=== PATIENT | female | born 1940 | race Caucasian/White ===

== ENCOUNTER → 2018-09-08 | Outpatient (CLI) | payer OTHER ==
[~2018-09-08] MED LIST: ALPR1TAB2 PO; CAR3125T PO; CYANOCOBALAMIN (B-12) 1000 MCG/1 ML VIAL IM ONE; CYANOCOBALAMIN (B-12) 1000 MCG/1 ML VIAL ONE; DIGO0.1262 PO; DOCU100T15 PO; ESOM20CA PO; EZET10TA38 PO; FERR324T17 PO; FLUT250M2 INH; FURO20TA PO; LEVO88TA36 PO; MAGN400T5 PO; MULT-195 OR; NITR0.4S29 SL; OMEG100078 PO; POTA10TA51 PO; RIVA20TA PO; SPIR25TA8 PO; TIOTCAP IN
[2018-09-08 10:53] VITALS: BP 126/45
[2018-09-08 13:05] VITALS: BP 126/45
[2018-09-08 16:06] LABS: Albumin 2.7 g/dL (3.4-5.0); Calcium 9.7 mg/dL (8.5-10.1); Magnesium 2.3 mg/dL (1.6-2.6); Potassium 3.4 mmol/L (3.5-5.1)
[2018-09-08 16:10] LABS: BUN/Creatinine Ratio 20.3; Basophils # (auto) 0.1 uL; Basophils % (auto) 0.6 % (0.0-2.0); Bilirubin, Total 0.3 mg/dL (0.2-1.0); Eosinophils # (auto) 0.1 uL; Eosinophils % (auto) 1.1 % (0.0-7.0); Hematocrit 37.3 % (36.0-46.0); Hemoglobin 12.1 g/dL (12.2-16.2); Lymphocytes # (auto) 1.1 uL; Lymphocytes % (auto) 12.7 % (10.0-50.0); Mean Corpuscular Hemoglobin 29.4 pg (28.0-32.0); Mean Corpuscular Hgb Conc. 32.3 g/dL (32.0-36.0); Mean Corpuscular Volume 91.1 fL (80.0-100.0); Monocytes % (auto) 11.8 % (0.0-12.0); Neutrophils # (auto) 6.5 uL; Neutrophils % (auto) 73.8 % (37.0-80.0); Nucleated Red Blood Cells % 0.1 %; Platelet Count (auto) 370 10^3/uL (140-450); Red Cell Distribution Width 15.1 % (11.8-14.3); Total Protein 6.4 g/dL (6.4-8.2); White Blood Cell 8.8 10^3/uL (4.4-10.8)
== END | disposition home or self-care (01) ==
LOC: CHF HDHVI 10:46
PROVIDERS: ATTEND Internal Medicine Cardiovascular Disease
DX: I11.0 Hypertensive heart disease with heart failure (principal); I50.23 Acute on chronic systolic (congestive) heart failure; D64.9 Anemia, unspecified; D51.9 Vitamin B12 deficiency anemia, unspecified; E55.9 Vitamin D deficiency, unspecified
CPT/HCPCS: 36415; 80053; 82306; 82607; 83735; 83880; 85025; 93701; G0463; J3420

== ENCOUNTER → 2018-09-10 | Outpatient (CLI) | payer OTHER ==
[~2018-09-10] MED LIST changes: -CYANOCOBALAMIN (B-12) 1000 MCG/1 ML VIAL IM ONE; -CYANOCOBALAMIN (B-12) 1000 MCG/1 ML VIAL ONE
== END | disposition home or self-care (01) ==
LOC: Rad HDHVI 13:40
PROVIDERS: ATTEND Internal Medicine Cardiovascular Disease
DX: I08.1 Rheumatic disorders of both mitral and tricuspid valves (principal); Z95.0 Presence of cardiac pacemaker
CPT/HCPCS: 93306

== ENCOUNTER → 2018-09-15 | Outpatient (CLI) | payer OTHER ==
[~2018-09-15] MED LIST changes: +CYANOCOBALAMIN (B-12) 1000 MCG/1 ML VIAL IM ONE; +CYANOCOBALAMIN (B-12) 1000 MCG/1 ML VIAL ONE
[2018-09-15 09:30] VITALS: BP 141/56
[2018-09-15 15:17] VITALS: BP 129/52
[2018-09-15 16:12] LABS: Potassium 3.7 mmol/L (3.5-5.1)
== END | disposition home or self-care (01) ==
LOC: CHF HDHVI 09:34
PROVIDERS: ATTEND Internal Medicine Cardiovascular Disease
DX: D51.9 Vitamin B12 deficiency anemia, unspecified (principal); I48.91 Unspecified atrial fibrillation; R94.4 Abnormal results of kidney function studies; E87.6 Hypokalemia; R06.00 Dyspnea, unspecified; I13.0 Hypertensive heart and chronic kidney disease with heart failure and stage 1 through stage 4 chronic kidney disease, or unspecified chronic kidney disease; E11.22 Type 2 diabetes mellitus with diabetic chronic kidney disease; E11.21 Type 2 diabetes mellitus with diabetic nephropathy; N18.2 Chronic kidney disease, stage 2 (mild); I50.42 Chronic combined systolic (congestive) and diastolic (congestive) heart failure; J44.9 Chronic obstructive pulmonary disease, unspecified; I25.10 Atherosclerotic heart disease of native coronary artery without angina pectoris; E03.9 Hypothyroidism, unspecified; E44.0 Moderate protein-calorie malnutrition; Z99.81 Dependence on supplemental oxygen; Z90.49 Acquired absence of other specified parts of digestive tract; Z98.61 Coronary angioplasty status; Z79.01 Long term (current) use of anticoagulants; Z79.4 Long term (current) use of insulin; Z95.1 Presence of aortocoronary bypass graft; Z87.01 Personal history of pneumonia (recurrent); Z95.810 Presence of automatic (implantable) cardiac defibrillator; Z79.899 Other long term (current) drug therapy
CPT/HCPCS: 36415; 80162; 82565; 83880; 84132; 84520; 94618; 96372; G0463; J3420

== ENCOUNTER → 2018-09-23 | Outpatient (CLI) | payer OTHER ==
[~2018-09-23] VITALS: Ht 162.6 cm; Wt 64.9 kg
[~2018-09-23] MED LIST changes: +ADENOSINE 54 MG in GIVE UN-DILUTED 0 ML IV ONE; +ADENOSINE 90 MG/30 ML INJ IV ONE; -CYANOCOBALAMIN (B-12) 1000 MCG/1 ML VIAL IM ONE; -CYANOCOBALAMIN (B-12) 1000 MCG/1 ML VIAL ONE
== END | disposition home or self-care (01) ==
LOC: Rad HDHVI 08:16
PROVIDERS: ATTEND Internal Medicine Cardiovascular Disease
DX: I11.0 Hypertensive heart disease with heart failure (principal); I50.9 Heart failure, unspecified; J44.9 Chronic obstructive pulmonary disease, unspecified; Z88.0 Allergy status to penicillin; Z88.8 Allergy status to other drugs, medicaments and biological substances
CPT/HCPCS: 78452; 93005; 96374; 96375; A9500; J0153

== ENCOUNTER → 2018-10-05 | Outpatient (CLI) | payer OTHER ==
[~2018-10-05] MED LIST changes: -ADENOSINE 54 MG in GIVE UN-DILUTED 0 ML IV ONE; -ADENOSINE 90 MG/30 ML INJ IV ONE
--- NOTE | 2018-10-05 11:00 | NUR ---
PT. TO CHF CLINIC WITH FAMILY MEMBER, GAIL FOR EVAL. AND TX. ORDERS RECEIVED FOR LABS AND CARRIED OUT. PT. STATES SHE HAS BEEN FEELING BETTER SINCE LAST LAST VISIT, BUT HAVING TROUBLE FALLING ASLEEP, IN SPITE OF USING 0.5MG ATIVAN.
--- NOTE | 2018-10-05 11:30 | NUR ---
LABS DRAWN AND SENT PER ORDER.
--- NOTE | 2018-10-05 12:10 | NUR ---
Dr. Curt Gaona at bedside Dr. Gaona at bedside for exam. Additional orders received and carried out. REVIEW OF PT'S ECHO AND LABS AND STRESS TEST DONE PRIOR TO DISCHARGE. DAUGHTER IN LAW WILL BRING IN ADDITIONAL MED.RECORDS FROM PREVIOUS MD IN [place] ON NEXT VISIT.
--- NOTE | 2018-10-05 12:20 | NUR ---
MEDS: SAMPLE OF SLEEP SPRAY AND MEDICINALS GIVEN TO PT. PER DR. CEDILLO WITH INSTRUCTIONS FOR SLEEP AID. DAUGHTER IN LAW ALSO INSTRUCTED ON MD INSTRUCTIONS AND USE.
[2018-10-05 12:38] VITALS: BP 136/66
--- NOTE | 2018-10-05 12:38 | NUR ---
Discharge Instructions See e-MAR for any mediations given with this visit. Patient education given on disease process. Patient verbalized understanding. Previous labs reviewed. Patient discharged in stable condition with after care instructions and follow up appointment. FOLLOW UP APPT. 10/15/18 AT 11:00 PER CLINIC .
[2018-10-05 16:08] LABS: Basophils # (auto) 0.1 uL; Basophils % (auto) 0.9 % (0.0-2.0); Eosinophils # (auto) 0.2 uL; Eosinophils % (auto) 2.1 % (0.0-7.0); Hematocrit 41.6 % (36.0-46.0); Hemoglobin 13.6 g/dL (12.2-16.2); Lymphocytes # (auto) 1.8 uL; Lymphocytes % (auto) 20.6 % (10.0-50.0); Mean Corpuscular Hemoglobin 30.1 pg (28.0-32.0); Mean Corpuscular Hgb Conc. 32.8 g/dL (32.0-36.0); Mean Corpuscular Volume 91.8 fL (80.0-100.0); Monocytes # (auto) 0.9 uL; Monocytes % (auto) 10.9 % (0.0-12.0); Neutrophils # (auto) 5.6 uL; Neutrophils % (auto) 65.5 % (37.0-80.0); Nucleated Red Blood Cells % 0.2 %; Platelet Count (auto) 220 10^3/uL (140-450); Red Blood Cells 4.53 10^6/uL (4.0-5.20); Red Cell Distribution Width 15.8 % (11.8-14.3); White Blood Cell 8.5 10^3/uL (4.4-10.8)
[2018-10-05 16:13] LABS: Calcium 9.5 mg/dL (8.5-10.1); Magnesium 2.6 mg/dL (1.6-2.6); Potassium 4.1 mmol/L (3.5-5.1)
== END | disposition home or self-care (01) ==
LOC: CHF HDHVI 11:08
PROVIDERS: ATTEND Internal Medicine Cardiovascular Disease
DX: I11.0 Hypertensive heart disease with heart failure (principal); I50.23 Acute on chronic systolic (congestive) heart failure; I25.10 Atherosclerotic heart disease of native coronary artery without angina pectoris; E83.40 Disorders of magnesium metabolism, unspecified; J44.9 Chronic obstructive pulmonary disease, unspecified; D64.9 Anemia, unspecified
CPT/HCPCS: 36415; 80048; 83735; 83880; 85025; G0463

== ENCOUNTER → 2018-10-13 | Outpatient (CLI) | payer OTHER ==
[~2018-10-13] MED LIST changes: +CYANOCOBALAMIN (B-12) 1000 MCG/1 ML VIAL IM ONE; +CYANOCOBALAMIN (B-12) 1000 MCG/1 ML VIAL ONE; +KETOROLAC TROMETH 60MG/2ML VIAL IM ONE
--- NOTE | 2018-10-13 09:50 | NUR ---
PT. TO CHF CLINIC FOR EVAL. AND TX. PT. WITH C/O UPPER BACK PAIN X 2 DAYS AFTER PICKING UP HER DOG PER PT. RATED PAIN 9/10. PREVIOUS LABS REVIEWED WITH PT. AND DAUGHTER IN LAW. ORDERS RECEIVED AND CARRIED OUT SEE NSG ASSESS.
--- NOTE | 2018-10-13 10:33 | NUR ---
LABS DRAWN AND SENT PER MD ORDER.
--- NOTE | 2018-10-13 10:58 | NUR ---
MEDS; PT. MEDICATED WITH VIT. B12 1000MCG IM RT DELT. PER MD ORDER.
--- NOTE | 2018-10-13 11:02 | NUR ---
MEDS: PT. MEDICATED WITH TORADOL 60 MG IM RT UPPER GLUT. PER MD ORDER. PAIN 05/15
--- NOTE | 2018-10-13 11:20 | NUR ---
COMFORT: PT. STATES PAIN IMPROVEMENT DOWN TO 5/10 AFTER MEDS.
[2018-10-13 11:30] VITALS: BP 122/60
--- NOTE | 2018-10-13 11:30 | NUR ---
Discharge Instructions See e-MAR for any mediations given with this visit. Patient education given on disease process. Patient verbalized understanding. Previous labs reviewed. Patient discharged in stable condition with after care instructions and follow up appointment.PT INSTRUCTED TO INCREASE SLEEP SPRAY TO 5 SPRAYS IN EACH CHEEK Q HS, AND EAT ONE EDIBLE QHS FOR PAIN AND SLEEP. PT. GIVEN COPY OF MOST RECENT LABD FOR DR. LESTER RAMIREZ. ON .
[2018-10-13 12:21] LABS: Albumin 3.3 g/dL (3.4-5.0); Bilirubin, Direct 0.1 mg/dL (0-0.2); Bilirubin, Total 0.4 mg/dL (0.2-1.0); Total Protein 6.4 g/dL (6.4-8.2)
== END | disposition home or self-care (01) ==
LOC: CHF HDHVI 10:02
PROVIDERS: ATTEND Internal Medicine Cardiovascular Disease
DX: D51.9 Vitamin B12 deficiency anemia, unspecified (principal); M54.89 Other dorsalgia; I13.0 Hypertensive heart and chronic kidney disease with heart failure and stage 1 through stage 4 chronic kidney disease, or unspecified chronic kidney disease; E11.22 Type 2 diabetes mellitus with diabetic chronic kidney disease; I50.23 Acute on chronic systolic (congestive) heart failure; I50.32 Chronic diastolic (congestive) heart failure; N18.2 Chronic kidney disease, stage 2 (mild); J44.9 Chronic obstructive pulmonary disease, unspecified; K74.1 Hepatic sclerosis; E11.21 Type 2 diabetes mellitus with diabetic nephropathy; I25.10 Atherosclerotic heart disease of native coronary artery without angina pectoris; E03.9 Hypothyroidism, unspecified; I25.5 Ischemic cardiomyopathy; J96.10 Chronic respiratory failure, unspecified whether with hypoxia or hypercapnia; I48.91 Unspecified atrial fibrillation; E44.0 Moderate protein-calorie malnutrition; I08.1 Rheumatic disorders of both mitral and tricuspid valves; Z90.49 Acquired absence of other specified parts of digestive tract; Z95.810 Presence of automatic (implantable) cardiac defibrillator; Z95.1 Presence of aortocoronary bypass graft; Z98.61 Coronary angioplasty status; Z99.81 Dependence on supplemental oxygen; Z79.4 Long term (current) use of insulin; Z79.01 Long term (current) use of anticoagulants; Z79.82 Long term (current) use of aspirin; Z79.899 Other long term (current) drug therapy
CPT/HCPCS: 36415; 80076; 83880; 96372; G0463; J1885; J3420

== ENCOUNTER 2018-10-19 11:23 | Inpatient (IN) | payer OTHER ==
[~2018-10-19] VITALS: Ht 162.6 cm; Wt 66.5 kg
[~2018-10-19 11:23] MED LIST changes: -CYANOCOBALAMIN (B-12) 1000 MCG/1 ML VIAL IM ONE; -CYANOCOBALAMIN (B-12) 1000 MCG/1 ML VIAL ONE; -KETOROLAC TROMETH 60MG/2ML VIAL IM ONE
[2018-10-19] MEDS ORDERED: methylPREDNISolone SOD SUCC 125 MG/2 ML VL IV ONE (11:45)
[2018-10-19 12:17] LABS: Basophils # (auto) 0.2 uL; Basophils % (auto) 1.2 % (0.0-2.0); Eosinophils # (auto) 0.1 uL; Eosinophils % (auto) 1.1 % (0.0-7.0); Hematocrit 40.7 % (36.0-46.0); Hemoglobin 13.1 g/dL (12.2-16.2); Lymphocytes # (auto) 1.9 uL; Lymphocytes % (auto) 15.7 % (10.0-50.0); Mean Corpuscular Hemoglobin 29.9 pg (28.0-32.0); Mean Corpuscular Hgb Conc. 32.2 g/dL (32.0-36.0); Mean Corpuscular Volume 92.8 fL (80.0-100.0); Monocytes # (auto) 1.4 uL; Monocytes % (auto) 11.8 % (0.0-12.0); Neutrophils # (auto) 8.6 uL; Neutrophils % (auto) 70.2 % (37.0-80.0); Platelet Count (auto) 286 10^3/uL (140-450); Red Blood Cells 4.39 10^6/uL (4.0-5.20); Red Cell Distribution Width 15.8 % (11.8-14.3); White Blood Cell 12.3 10^3/uL (4.4-10.8)
[2018-10-19 13:07] LABS: Urine WBC None Seen /hpf (0 - 5)
[2018-10-19 13:07] LABS: Alanine Aminotransferase 21 U/L (13-56); Albumin 3.1 g/dL (3.4-5.0); Anion Gap 3 (5-15); Blood Urea Nitrogen 18 mg/dL (7-18); Calcium 9.1 mg/dL (8.5-10.1); Carbon Dioxide 36 mmol/L (21-32); Chloride 95 mmol/L (98-107); Glucose 109 mg/dL (74-106); Magnesium 2.1 mg/dL (1.6-2.6); Potassium 3.7 mmol/L (3.5-5.1); Sodium 134 mmol/L (136-145)
[2018-10-19 13:10] LABS: Lactic Acid w/Reflex 2.1 mmol/L (0.4-2.0)
[2018-10-19 13:12] LABS: Alkaline Phosphatase 94 U/L (45-117); Aspartate Aminotransferase 21 U/L (15-37); BUN/Creatinine Ratio 31.6; Bilirubin, Total 0.6 mg/dL (0.2-1.0); GFR African American > 60 mL/min; GFR Non-African American > 60 mL/min; Total Protein 6.8 g/dL (6.4-8.2)
[2018-10-19] MEDS ORDERED: FUROSEMIDE 40 MG/4 ML VIAL IV ONE (13:30)
[2018-10-19 13:38] LABS: Urine Bacteria NONE SEEN /hpf (None Seen); Urine Blood 2+ /uL (Negative); Urine Specific Gravity 1.006 (1.001-1.035)
[2018-10-19] MEDS ORDERED: NITROGLYCERIN 0.4 MG SL TAB SL PRN (14:45)
[2018-10-19] MEDS ORDERED: MORPHINE SULFATE 10 MG/ML INJ 1ML SDV IV PRN (14:45)
[2018-10-19] MEDS ORDERED: KETOROLAC TROMETH 30 MG/ML 1ML VIAL IV ONE (14:45)
[2018-10-19] MEDS: IPRATROPIUM BROM 0.5 MG/2.5ML INH SOL NEB SCH (18:37)
[2018-10-19] MEDS: BUDESONIDE (INHALATION) 0.5 MG/2 ML NEB NEB SCH (18:37)
[2018-10-19] MEDS: ALBUTEROL SULF 2.5 MG/0.5ML(0.5%) NEB SOLN NEB SCH (18:37)
[2018-10-19] MEDS: RIVAROXABAN 20 MG TAB PO SCH (18:47)
[2018-10-19 21:44] VITALS: BP 140/68
[2018-10-19] MEDS: CARVEDILOL 3.125 MG TAB PO SCH (22:16)
[2018-10-19] MEDS: ATORVASTATIN 20 MG TAB PO SCH (22:16)
[2018-10-19] MEDS: ALPRAZolam 0.5 MG TAB PO PRN (22:17)
[2018-10-19 23:55] VITALS: BP 140/68
[2018-10-20] VITALS (7 sets, daily range): BP systolic 112–145; BP diastolic 54–83
[2018-10-20] MEDS: IPRATROPIUM BROM 0.5 MG/2.5ML INH SOL NEB SCH ×5 (01:00→19:15)
[2018-10-20] MEDS: ALBUTEROL SULF 2.5 MG/0.5ML(0.5%) NEB SOLN NEB SCH ×5 (01:01→19:15)
[2018-10-20 05:19] LABS: Basophils # (auto) 0 uL; Basophils % (auto) 0.5 % (0.0-2.0); Eosinophils # (auto) 0 uL; Hematocrit 38.3 % (36.0-46.0); Hemoglobin 12.3 g/dL (12.2-16.2); Lymphocytes # (auto) 0.8 uL; Mean Corpuscular Hemoglobin 29.7 pg (28.0-32.0); Mean Corpuscular Hgb Conc. 32.2 g/dL (32.0-36.0); Mean Corpuscular Volume 92.2 fL (80.0-100.0); Monocytes # (auto) 0.3 uL; Monocytes % (auto) 4.9 % (0.0-12.0); Neutrophils # (auto) 5.8 uL; Neutrophils % (auto) 83.6 % (37.0-80.0); Platelet Count (auto) 249 10^3/uL (140-450); Red Blood Cells 4.15 10^6/uL (4.0-5.20); Red Cell Distribution Width 15.5 % (11.8-14.3)
[2018-10-20 05:29] LABS: Anion Gap 6 (5-15); Blood Urea Nitrogen 24 mg/dL (7-18); Calcium 9.1 mg/dL (8.5-10.1); Carbon Dioxide 34 mmol/L (21-32); Chloride 99 mmol/L (98-107); Glucose 139 mg/dL (74-106); Potassium 3.7 mmol/L (3.5-5.1); Sodium 139 mmol/L (136-145)
[2018-10-20 05:31] LABS: GFR African American > 60 mL/min; GFR Non-African American > 60 mL/min
[2018-10-20] MEDS: LEVOTHYROXINE SODIUM 88 MCG TAB PO SCH (06:12)
[2018-10-20] MEDS: BUDESONIDE (INHALATION) 0.5 MG/2 ML NEB NEB SCH ×2 (06:14→18:51)
[2018-10-20] MEDS: PANTOPRAZOLE 40 MG TAB PO SCH (10:23)
[2018-10-20] MEDS: FUROSEMIDE 40 MG/4 ML VIAL IV SCH (10:23)
[2018-10-20] MEDS: MAGNESIUM OXIDE 400 MG TAB PO SCH (10:24)
[2018-10-20] MEDS: DIGOXIN 0.125 MG TAB PO SCH (10:24)
[2018-10-20] MEDS: CARVEDILOL 3.125 MG TAB PO SCH ×2 (10:24→21:20)
[2018-10-20] MEDS: SPIRONOLACTONE 25 MG TAB PO SCH (10:24)
[2018-10-20] MEDS: POTASSIUM CHL 20 Meq TABLET PO SCH (10:25)
[2018-10-20] MEDS: MORPHINE SULFATE 10 MG/ML INJ 1ML SDV IV PRN ×2 (15:02→22:22)
[2018-10-20] MEDS: HYDROcodone-ACET 5/325MG TAB PO PRN ×2 (16:55→21:37)
[2018-10-20] MEDS: RIVAROXABAN 20 MG TAB PO SCH (17:32)
[2018-10-20] MEDS: ATORVASTATIN 20 MG TAB PO SCH (21:19)
[2018-10-20] MEDS: ALPRAZolam 0.5 MG TAB PO PRN (21:38)
[2018-10-21 05:20] VITALS: BP 117/53
[2018-10-21 05:52] LABS: Anion Gap 7 (5-15); BUN/Creatinine Ratio 54.2; Blood Urea Nitrogen 32 mg/dL (7-18); Carbon Dioxide 35 mmol/L (21-32); Chloride 98 mmol/L (98-107); GFR African American > 60 mL/min; GFR Non-African American > 60 mL/min; Glucose 100 mg/dL (74-106); Magnesium 2.4 mg/dL (1.6-2.6); Potassium 3.9 mmol/L (3.5-5.1); Sodium 140 mmol/L (136-145)
[2018-10-21] MEDS: BUDESONIDE (INHALATION) 0.5 MG/2 ML NEB NEB SCH ×3 (06:18→22:00)
[2018-10-21] MEDS: ALBUTEROL SULF 2.5 MG/0.5ML(0.5%) NEB SOLN NEB SCH ×3 (06:18→18:49)
[2018-10-21] MEDS: IPRATROPIUM BROM 0.5 MG/2.5ML INH SOL NEB SCH ×3 (06:18→18:49)
[2018-10-21] MEDS: LEVOTHYROXINE SODIUM 88 MCG TAB PO SCH (06:20)
[2018-10-21] MEDS: MORPHINE SULFATE 10 MG/ML INJ 1ML SDV IV PRN (06:59)
[2018-10-21 08:00] VITALS: BP 117/49
[2018-10-21 09:00] VITALS: BP 117/49
[2018-10-21] MEDS: PANTOPRAZOLE 40 MG TAB PO SCH (10:24)
[2018-10-21] MEDS: MAGNESIUM OXIDE 400 MG TAB PO SCH (10:24)
[2018-10-21] MEDS: FUROSEMIDE 40 MG/4 ML VIAL IV SCH (10:24)
[2018-10-21] MEDS: SPIRONOLACTONE 25 MG TAB PO SCH (10:24)
[2018-10-21] MEDS: DIGOXIN 0.125 MG TAB PO SCH (10:24)
[2018-10-21] MEDS: CARVEDILOL 3.125 MG TAB PO SCH ×2 (10:25→21:53)
[2018-10-21] MEDS: POTASSIUM CHL 20 Meq TABLET PO SCH (10:25)
[2018-10-21] MEDS: HYDROcodone-ACET 5/325MG TAB PO PRN (10:34)
[2018-10-21 13:00] VITALS: BP 120/59
[2018-10-21] MEDS: traMADol HCL 50 MG TAB PO PRN ×2 (15:46→21:52)
[2018-10-21 17:00] VITALS: BP 128/68
[2018-10-21] MEDS: RIVAROXABAN 20 MG TAB PO SCH (18:20)
[2018-10-21 21:34] VITALS: BP 140/68
[2018-10-21] MEDS: ATORVASTATIN 20 MG TAB PO SCH (21:52)
[2018-10-21] MEDS: ALPRAZolam 0.5 MG TAB PO PRN (21:53)
[2018-10-22] VITALS (7 sets, daily range): BP systolic 106–136; BP diastolic 42–61
[2018-10-22] MEDS: IPRATROPIUM BROM 0.5 MG/2.5ML INH SOL NEB SCH ×4 (00:50→19:31)
[2018-10-22] MEDS: ALBUTEROL SULF 2.5 MG/0.5ML(0.5%) NEB SOLN NEB SCH ×4 (00:50→19:31)
[2018-10-22] MEDS: traMADol HCL 50 MG TAB PO PRN ×3 (05:46→21:44)
[2018-10-22] MEDS: BUDESONIDE (INHALATION) 0.5 MG/2 ML NEB NEB SCH ×2 (06:18→19:31)
[2018-10-22] MEDS: LEVOTHYROXINE SODIUM 88 MCG TAB PO SCH (06:41)
[2018-10-22] MEDS: FUROSEMIDE 40 MG/4 ML VIAL IV SCH (10:00)
[2018-10-22] MEDS: SPIRONOLACTONE 25 MG TAB PO SCH (10:00)
[2018-10-22] MEDS: DIGOXIN 0.125 MG TAB PO SCH (10:00)
[2018-10-22] MEDS: CARVEDILOL 3.125 MG TAB PO SCH ×2 (10:00→21:45)
[2018-10-22] MEDS: PANTOPRAZOLE 40 MG TAB PO SCH (10:01)
[2018-10-22] MEDS: MAGNESIUM OXIDE 400 MG TAB PO SCH (10:01)
[2018-10-22] MEDS: POTASSIUM CHL 20 Meq TABLET PO SCH (10:36)
[2018-10-22] MEDS: RIVAROXABAN 20 MG TAB PO SCH (18:00)
[2018-10-22] MEDS: ATORVASTATIN 20 MG TAB PO SCH (21:44)
[2018-10-22] MEDS: ALPRAZolam 0.5 MG TAB PO PRN (23:28)
[2018-10-23 05:00] VITALS: BP 112/50
[2018-10-23] MEDS: BUDESONIDE (INHALATION) 0.5 MG/2 ML NEB NEB SCH ×2 (05:52→19:37)
[2018-10-23] MEDS: ALBUTEROL SULF 2.5 MG/0.5ML(0.5%) NEB SOLN NEB SCH ×4 (05:52→19:37)
[2018-10-23] MEDS: IPRATROPIUM BROM 0.5 MG/2.5ML INH SOL NEB SCH ×4 (05:52→19:37)
[2018-10-23] MEDS: traMADol HCL 50 MG TAB PO PRN ×3 (05:55→20:05)
[2018-10-23] MEDS: LEVOTHYROXINE SODIUM 88 MCG TAB PO SCH (05:55)
[2018-10-23 09:00] VITALS: BP 107/65
[2018-10-23] MEDS: FUROSEMIDE 40 MG/4 ML VIAL IV SCH (10:44)
[2018-10-23] MEDS: CARVEDILOL 3.125 MG TAB PO SCH ×2 (10:45→20:10)
[2018-10-23] MEDS: SPIRONOLACTONE 25 MG TAB PO SCH (10:45)
[2018-10-23] MEDS: MAGNESIUM OXIDE 400 MG TAB PO SCH (10:45)
[2018-10-23] MEDS: PANTOPRAZOLE 40 MG TAB PO SCH (10:46)
[2018-10-23] MEDS: DIGOXIN 0.125 MG TAB PO SCH (10:46)
[2018-10-23] MEDS: POTASSIUM CHL 20 Meq TABLET PO SCH (10:46)
[2018-10-23] MEDS ORDERED: LEVOFLOXACIN 750MG 150 ML IV ONE (11:15)
[2018-10-23 13:00] VITALS: BP 110/68
[2018-10-23 17:00] VITALS: BP 116/70
[2018-10-23] MEDS: RIVAROXABAN 20 MG TAB PO SCH (17:47)
[2018-10-23] MEDS: ATORVASTATIN 20 MG TAB PO SCH (20:05)
[2018-10-23] MEDS: ALPRAZolam 0.5 MG TAB PO PRN (20:05)
[2018-10-23 21:55] VITALS: BP 117/63
[2018-10-24 04:53] VITALS: BP 128/60
[2018-10-24] MEDS: LEVOTHYROXINE SODIUM 88 MCG TAB PO SCH (04:58)
[2018-10-24] MEDS: traMADol HCL 50 MG TAB PO PRN ×4 (04:59→20:43)
[2018-10-24 06:36] LABS: Basophils # (auto) 0 uL; Basophils % (auto) 0.6 % (0.0-2.0); Eosinophils # (auto) 0.2 uL; Eosinophils % (auto) 1.9 % (0.0-7.0); Hematocrit 34.5 % (36.0-46.0); Hemoglobin 11.5 g/dL (12.2-16.2); Lymphocytes # (auto) 1.2 uL; Lymphocytes % (auto) 14.1 % (10.0-50.0); Mean Corpuscular Hemoglobin 30.5 pg (28.0-32.0); Mean Corpuscular Hgb Conc. 33.4 g/dL (32.0-36.0); Mean Corpuscular Volume 91.3 fL (80.0-100.0); Monocytes # (auto) 1.2 uL; Monocytes % (auto) 14.5 % (0.0-12.0); Neutrophils # (auto) 5.8 uL; Neutrophils % (auto) 68.9 % (37.0-80.0); Nucleated Red Blood Cells % 0.1 %; Platelet Count (auto) 244 10^3/uL (140-450); Red Blood Cells 3.78 10^6/uL (4.0-5.20); Red Cell Distribution Width 14.8 % (11.8-14.3); White Blood Cell 8.3 10^3/uL (4.4-10.8)
[2018-10-24] MEDS: IPRATROPIUM BROM 0.5 MG/2.5ML INH SOL NEB SCH ×4 (06:44→19:09)
[2018-10-24] MEDS: ALBUTEROL SULF 2.5 MG/0.5ML(0.5%) NEB SOLN NEB SCH ×4 (06:44→19:08)
[2018-10-24 06:52] LABS: Chloride 96 mmol/L (98-107); Potassium 4.3 mmol/L (3.5-5.1); Sodium 134 mmol/L (136-145)
[2018-10-24 06:57] LABS: Anion Gap 5 (5-15); BUN/Creatinine Ratio 35.7; Blood Urea Nitrogen 15 mg/dL (7-18); Calcium 9.2 mg/dL (8.5-10.1); Carbon Dioxide 33 mmol/L (21-32); Glucose 78 mg/dL (74-106); Magnesium 2.3 mg/dL (1.6-2.6)
[2018-10-24 07:09] LABS: GFR African American > 60 mL/min; GFR Non-African American > 60 mL/min
[2018-10-24 09:00] VITALS: BP 105/55
[2018-10-24] MEDS: POTASSIUM CHL 20 Meq TABLET PO SCH (09:29)
[2018-10-24] MEDS: CARVEDILOL 3.125 MG TAB PO SCH ×2 (09:29→21:58)
[2018-10-24] MEDS: DIGOXIN 0.125 MG TAB PO SCH (09:30)
[2018-10-24] MEDS: MAGNESIUM OXIDE 400 MG TAB PO SCH (09:30)
[2018-10-24] MEDS: PANTOPRAZOLE 40 MG TAB PO SCH (09:30)
[2018-10-24] MEDS: SPIRONOLACTONE 25 MG TAB PO SCH (09:30)
[2018-10-24] MEDS: FUROSEMIDE 40 MG/4 ML VIAL IV SCH (09:31)
[2018-10-24] MEDS: BUDESONIDE (INHALATION) 0.5 MG/2 ML NEB NEB SCH ×2 (09:48→19:08)
[2018-10-24] MEDS ORDERED: LEVOFLOXACIN 750MG 150 ML IV SCH (10:00)
[2018-10-24 13:00] VITALS: BP 113/61
[2018-10-24] MEDS ORDERED: MORPHINE SULFATE 4 MG/ML SYR/VIAL IV PRN (14:30)
[2018-10-24] MEDS ORDERED: traMADol HCL 50 MG TAB PO PRN (14:30)
[2018-10-24] MEDS: RIVAROXABAN 20 MG TAB PO SCH (15:05)
[2018-10-24 17:00] VITALS: BP 116/56
[2018-10-24] MEDS: CALCIUM W/VIT D (600MG/400IU) TAB PO SCH (18:06)
[2018-10-24] MEDS: methylPREDNISolone SOD SUCC 40 MG/ML VL IV SCH (21:57)
[2018-10-24] MEDS: ATORVASTATIN 20 MG TAB PO SCH (21:57)
[2018-10-24 22:00] VITALS: BP 133/69
[2018-10-25] MEDS: traMADol HCL 50 MG TAB PO PRN ×3 (03:41→16:13)
[2018-10-25 04:42] VITALS: BP 111/53
[2018-10-25] MEDS: BUDESONIDE (INHALATION) 0.5 MG/2 ML NEB NEB SCH ×2 (05:55→22:00)
[2018-10-25] MEDS: IPRATROPIUM BROM 0.5 MG/2.5ML INH SOL NEB SCH ×7 (05:56→21:59)
[2018-10-25] MEDS: ALBUTEROL SULF 2.5 MG/0.5ML(0.5%) NEB SOLN NEB SCH ×4 (05:56→18:17)
[2018-10-25] MEDS: LEVOTHYROXINE SODIUM 88 MCG TAB PO SCH (06:16)
[2018-10-25] MEDS: methylPREDNISolone SOD SUCC 40 MG/ML VL IV SCH ×3 (06:16→21:51)
[2018-10-25 09:00] VITALS: BP 112/48
[2018-10-25] MEDS: CARVEDILOL 3.125 MG TAB PO SCH ×2 (10:14→21:52)
[2018-10-25] MEDS: SPIRONOLACTONE 25 MG TAB PO SCH (10:14)
[2018-10-25] MEDS: DIGOXIN 0.125 MG TAB PO SCH (10:14)
[2018-10-25] MEDS: PANTOPRAZOLE 40 MG TAB PO SCH (10:14)
[2018-10-25] MEDS: FUROSEMIDE 40 MG/4 ML VIAL IV SCH (10:15)
[2018-10-25] MEDS: POTASSIUM CHL 20 Meq TABLET PO SCH (10:20)
[2018-10-25] MEDS: CALCIUM W/VIT D (600MG/400IU) TAB PO SCH ×2 (12:15→18:04)
[2018-10-25] MEDS: MAGNESIUM OXIDE 400 MG TAB PO SCH (12:15)
[2018-10-25 13:00] VITALS: BP 112/53
[2018-10-25 17:00] VITALS: BP 110/43
[2018-10-25] MEDS: RIVAROXABAN 20 MG TAB PO SCH (17:19)
[2018-10-25] MEDS: ATORVASTATIN 20 MG TAB PO SCH (21:52)
[2018-10-25] MEDS: ALPRAZolam 0.5 MG TAB PO PRN (21:52)
[2018-10-25 22:00] VITALS: BP 122/61
[2018-10-25 22:03] LABS: Basophils # (auto) 0 uL; Basophils % (auto) 0.2 % (0.0-2.0); Eosinophils # (auto) 0 uL; Hematocrit 32.1 % (36.0-46.0); Hemoglobin 10.9 g/dL (12.2-16.2); Lymphocytes # (auto) 0.5 uL; Lymphocytes % (auto) 5.6 % (10.0-50.0); Mean Corpuscular Hemoglobin 30.8 pg (28.0-32.0); Mean Corpuscular Volume 90.7 fL (80.0-100.0); Monocytes # (auto) 0.3 uL; Monocytes % (auto) 4.1 % (0.0-12.0); Neutrophils # (auto) 7.6 uL; Neutrophils % (auto) 90.1 % (37.0-80.0); Platelet Count (auto) 270 10^3/uL (140-450); Red Blood Cells 3.54 10^6/uL (4.0-5.20); Red Cell Distribution Width 14.8 % (11.8-14.3); White Blood Cell 8.4 10^3/uL (4.4-10.8)
[2018-10-25 22:09] LABS: INR 1.15 (0.9-1.15); Prothrombin Time 12.2 sec (9.27-12.13)
[2018-10-25 22:14] LABS: Anion Gap 4 (5-15); BUN/Creatinine Ratio 24.6; Blood Urea Nitrogen 17 mg/dL (7-18); Calcium 9.2 mg/dL (8.5-10.1); Carbon Dioxide 36 mmol/L (21-32); Chloride 92 mmol/L (98-107); GFR African American > 60 mL/min; GFR Non-African American > 60 mL/min; Glucose 245 mg/dL (74-106); Potassium 4.3 mmol/L (3.5-5.1); Sodium 132 mmol/L (136-145)
[2018-10-26] VITALS (7 sets, daily range): BP systolic 106–122; BP diastolic 50–65
[2018-10-26] MEDS: IPRATROPIUM BROM 0.5 MG/2.5ML INH SOL NEB SCH ×8 (02:00→20:04)
[2018-10-26] MEDS: LEVOTHYROXINE SODIUM 88 MCG TAB PO SCH (06:25)
[2018-10-26] MEDS: methylPREDNISolone SOD SUCC 40 MG/ML VL IV SCH ×2 (06:26→21:37)
[2018-10-26] MEDS: ALBUTEROL SULF 2.5 MG/0.5ML(0.5%) NEB SOLN NEB SCH ×4 (06:46→20:04)
[2018-10-26] MEDS: POTASSIUM CHL 20 Meq TABLET PO SCH (09:55)
[2018-10-26] MEDS: SPIRONOLACTONE 25 MG TAB PO SCH (09:55)
[2018-10-26] MEDS: DIGOXIN 0.125 MG TAB PO SCH (09:55)
[2018-10-26] MEDS: PANTOPRAZOLE 40 MG TAB PO SCH (09:55)
[2018-10-26] MEDS: CARVEDILOL 3.125 MG TAB PO SCH ×2 (09:56→21:37)
[2018-10-26] MEDS: FUROSEMIDE 40 MG/4 ML VIAL IV SCH (09:56)
[2018-10-26] MEDS: traMADol HCL 50 MG TAB PO PRN ×3 (09:57→22:17)
[2018-10-26] MEDS: LEVOFLOXACIN 750MG 150 ML IV SCH (09:57)
[2018-10-26] MEDS: BUDESONIDE (INHALATION) 0.5 MG/2 ML NEB NEB SCH ×2 (10:05→20:04)
[2018-10-26] MEDS: MAGNESIUM OXIDE 400 MG TAB PO SCH (12:00)
[2018-10-26] MEDS: CALCIUM W/VIT D (600MG/400IU) TAB PO SCH ×2 (12:00→18:00)
[2018-10-26] MEDS ORDERED: IOHEXOL 350 MG/ML 100ML IJ ONE (12:12)
[2018-10-26] MEDS ORDERED: LIDOCAINE 2%HCL (LOCAL ANESTH.) INJ 20ML MDV ONE (12:12)
[2018-10-26] MEDS ORDERED: fentaNYL CITRATE 100 MCG/2 ML VL ONE (14:03)
[2018-10-26] MEDS ORDERED: MIDAZOLAM HCL 1MG/1ML-2 ML VIAL ONE (14:03)
[2018-10-26] MEDS ORDERED: ANGIOMAX 250 MG VIAL IV ONE (14:07)
[2018-10-26] MEDS ORDERED: SODIUM CHL 0.9% 50 ML ONE (14:08)
[2018-10-26] MEDS: RIVAROXABAN 20 MG TAB PO SCH (15:15)
[2018-10-26] MEDS ORDERED: KETOROLAC TROMETH 30 MG/ML 1ML VIAL IV ONE (19:00)
[2018-10-26] MEDS: ATORVASTATIN 20 MG TAB PO SCH (21:38)
[2018-10-26] MEDS: ALPRAZolam 0.5 MG TAB PO PRN (21:38)
[2018-10-27] VITALS (7 sets, daily range): BP systolic 111–121; BP diastolic 57–65
[2018-10-27] MEDS: ALBUTEROL SULF 2.5 MG/0.5ML(0.5%) NEB SOLN NEB SCH ×4 (05:51→19:17)
[2018-10-27] MEDS: IPRATROPIUM BROM 0.5 MG/2.5ML INH SOL NEB SCH ×4 (05:51→19:17)
[2018-10-27] MEDS: LEVOTHYROXINE SODIUM 88 MCG TAB PO SCH (06:20)
[2018-10-27 07:07] LABS: Basophils # (auto) 0 uL; Basophils % (auto) 0.2 % (0.0-2.0); Eosinophils # (auto) 0 uL; Hematocrit 30.5 % (36.0-46.0); Lymphocytes # (auto) 0.8 uL; Mean Corpuscular Hemoglobin 30.2 pg (28.0-32.0); Mean Corpuscular Hgb Conc. 32.9 g/dL (32.0-36.0); Mean Corpuscular Volume 91.7 fL (80.0-100.0); Monocytes % (auto) 7.8 % (0.0-12.0); Neutrophils # (auto) 11.5 uL; Nucleated Red Blood Cells % 0.1 %; Platelet Count (auto) 282 10^3/uL (140-450); Red Blood Cells 3.32 10^6/uL (4.0-5.20); Red Cell Distribution Width 15.2 % (11.8-14.3); White Blood Cell 13.4 10^3/uL (4.4-10.8)
[2018-10-27 07:20] LABS: Anion Gap 5 (5-15); BUN/Creatinine Ratio 47.4; Blood Urea Nitrogen 27 mg/dL (7-18); Calcium 10.1 mg/dL (8.5-10.1); Carbon Dioxide 35 mmol/L (21-32); Chloride 94 mmol/L (98-107); GFR African American > 60 mL/min; GFR Non-African American > 60 mL/min; Glucose 154 mg/dL (74-106); Potassium 4.8 mmol/L (3.5-5.1); Sodium 134 mmol/L (136-145)
[2018-10-27] MEDS: SPIRONOLACTONE 25 MG TAB PO SCH (10:03)
[2018-10-27] MEDS: methylPREDNISolone SOD SUCC 40 MG/ML VL IV SCH (10:03)
[2018-10-27] MEDS: FUROSEMIDE 40 MG/4 ML VIAL IV SCH (10:03)
[2018-10-27] MEDS: POTASSIUM CHL 20 Meq TABLET PO SCH (10:03)
[2018-10-27] MEDS: DIGOXIN 0.125 MG TAB PO SCH (10:03)
[2018-10-27] MEDS: PANTOPRAZOLE 40 MG TAB PO SCH (10:03)
[2018-10-27] MEDS: CARVEDILOL 3.125 MG TAB PO SCH ×2 (10:04→21:59)
[2018-10-27] MEDS: traMADol HCL 50 MG TAB PO PRN ×2 (10:20→22:00)
[2018-10-27] MEDS: BUDESONIDE (INHALATION) 0.5 MG/2 ML NEB NEB SCH ×2 (11:05→19:17)
[2018-10-27] MEDS: MAGNESIUM OXIDE 400 MG TAB PO SCH (12:04)
[2018-10-27] MEDS: CALCIUM W/VIT D (600MG/400IU) TAB PO SCH ×2 (12:04→18:00)
[2018-10-27] MEDS ORDERED: MORPHINE SULFATE 4 MG/ML SYR/VIAL IV PRN (13:45)
[2018-10-27] MEDS ORDERED: FLUCONAZOLE 100 MG TAB PO ONE (13:45)
[2018-10-27] MEDS ORDERED: LACTULOSE 20Gm/30ML SOLN PO PRN (14:15)
[2018-10-27] MEDS: RIVAROXABAN 20 MG TAB PO SCH (18:00)
[2018-10-27] MEDS: DOCUSATE SOD 100 MG CAP PO SCH (21:58)
[2018-10-27] MEDS: ATORVASTATIN 20 MG TAB PO SCH (22:00)
[2018-10-27] MEDS: ALPRAZolam 0.5 MG TAB PO PRN (22:01)
[2018-10-28 05:27] VITALS: BP 116/45
[2018-10-28 05:40] LABS: Basophils # (auto) 0 uL; Basophils % (auto) 0.3 % (0.0-2.0); Eosinophils # (auto) 0 uL; Hematocrit 29.5 % (36.0-46.0); Hemoglobin 9.7 g/dL (12.2-16.2); Lymphocytes # (auto) 0.7 uL; Lymphocytes % (auto) 6.6 % (10.0-50.0); Mean Corpuscular Hemoglobin 29.7 pg (28.0-32.0); Mean Corpuscular Hgb Conc. 32.7 g/dL (32.0-36.0); Mean Corpuscular Volume 90.6 fL (80.0-100.0); Monocytes # (auto) 1.6 uL; Monocytes % (auto) 14.2 % (0.0-12.0); Neutrophils # (auto) 8.8 uL; Neutrophils % (auto) 78.9 % (37.0-80.0); Nucleated Red Blood Cells % 0.1 %; Platelet Count (auto) 288 10^3/uL (140-450); Red Blood Cells 3.25 10^6/uL (4.0-5.20); Red Cell Distribution Width 14.9 % (11.8-14.3); White Blood Cell 11.2 10^3/uL (4.4-10.8)
[2018-10-28 06:02] LABS: Anion Gap 6 (5-15); Blood Urea Nitrogen 28 mg/dL (7-18); Carbon Dioxide 33 mmol/L (21-32); Chloride 95 mmol/L (98-107); Glucose 148 mg/dL (74-106); Potassium 4.5 mmol/L (3.5-5.1); Sodium 134 mmol/L (136-145)
[2018-10-28 06:04] LABS: BUN/Creatinine Ratio 50.9; GFR African American > 60 mL/min; GFR Non-African American > 60 mL/min
[2018-10-28] MEDS: LEVOTHYROXINE SODIUM 88 MCG TAB PO SCH (06:51)
[2018-10-28 06:57] LABS: Calcium 9.5 mg/dL (8.5-10.1)
[2018-10-28] MEDS: traMADol HCL 50 MG TAB PO PRN (06:57)
[2018-10-28 08:00] VITALS: BP 105/77
[2018-10-28 09:00] VITALS: BP 105/77
[2018-10-28] MEDS: ALBUTEROL SULF 2.5 MG/0.5ML(0.5%) NEB SOLN NEB SCH ×2 (09:51→14:30)
[2018-10-28] MEDS: IPRATROPIUM BROM 0.5 MG/2.5ML INH SOL NEB SCH ×2 (09:52→14:30)
[2018-10-28] MEDS: BUDESONIDE (INHALATION) 0.5 MG/2 ML NEB NEB SCH (09:52)
[2018-10-28] MEDS ORDERED: FLUCONAZOLE 100 MG TAB PO SCH (10:00)
[2018-10-28] MEDS ORDERED: methylPREDNISolone SOD SUCC 40 MG/ML VL IV SCH (10:00)
[2018-10-28] MEDS: MAGNESIUM OXIDE 400 MG TAB PO SCH (11:30)
[2018-10-28] MEDS: CALCIUM W/VIT D (600MG/400IU) TAB PO SCH (11:30)
[2018-10-28] MEDS: POTASSIUM CHL 20 Meq TABLET PO SCH (11:31)
[2018-10-28] MEDS: PANTOPRAZOLE 40 MG TAB PO SCH (11:31)
[2018-10-28] MEDS: DOCUSATE SOD 100 MG CAP PO SCH (11:31)
[2018-10-28] MEDS: SPIRONOLACTONE 25 MG TAB PO SCH (11:32)
[2018-10-28] MEDS: DIGOXIN 0.125 MG TAB PO SCH (11:33)
[2018-10-28] MEDS: CARVEDILOL 3.125 MG TAB PO SCH (11:55)
[2018-10-28] MEDS: LEVOFLOXACIN 750MG 150 ML IV SCH (11:55)
[2018-10-28] MEDS: FUROSEMIDE 40 MG/4 ML VIAL IV SCH (11:55)
[2018-10-28] MEDS ORDERED: DOXY-216 PO (12:57)
[2018-10-28] MEDS ORDERED: SACC250C PO (12:57)
[2018-10-28] MEDS ORDERED: FLUC100T34 PO (12:57)
[2018-10-28 13:00] VITALS: BP 147/78
== END 2018-10-28 15:28 | disposition home health service (06) | DRG 286 ==
LOC: EDBD 11:23 → ER 11:31 → TELE 14:50 → TELE-WESTW 21:27
PROVIDERS: ADMIT Internal Medicine; ATTEND Internal Medicine
PROC: 4A023N7 Measurement of Cardiac Sampling and Pressure, Left Heart, Percutaneous Approach (ICD-10-PCS; principal; 2018-10-26)
PROC: B2111ZZ Fluoroscopy of Multiple Coronary Arteries using Low Osmolar Contrast (ICD-10-PCS; 2018-10-26)
PROC: B2131ZZ Fluoroscopy of Multiple Coronary Artery Bypass Grafts using Low Osmolar Contrast (ICD-10-PCS; 2018-10-26)
PROC: B2181ZZ Fluoroscopy of Left Internal Mammary Bypass Graft using Low Osmolar Contrast (ICD-10-PCS; 2018-10-26)
PROC: B2151ZZ Fluoroscopy of Left Heart using Low Osmolar Contrast (ICD-10-PCS; 2018-10-26)
DX: T82.898A Other specified complication of vascular prosthetic devices, implants and grafts, initial encounter (principal); J96.20 Acute and chronic respiratory failure, unspecified whether with hypoxia or hypercapnia; J69.0 Pneumonitis due to inhalation of food and vomit; I50.43 Acute on chronic combined systolic (congestive) and diastolic (congestive) heart failure; J44.1 Chronic obstructive pulmonary disease with (acute) exacerbation; E87.3 Alkalosis; I24.0 Acute coronary thrombosis not resulting in myocardial infarction; I42.0 Dilated cardiomyopathy; I11.0 Hypertensive heart disease with heart failure; E03.9 Hypothyroidism, unspecified; E78.5 Hyperlipidemia, unspecified; X58.XXXA Exposure to other specified factors, initial encounter; M51.34 Other intervertebral disc degeneration, thoracic region; M54.5 Low back pain; I25.5 Ischemic cardiomyopathy; D63.8 Anemia in other chronic diseases classified elsewhere; I25.10 Atherosclerotic heart disease of native coronary artery without angina pectoris; Y83.8 Other surgical procedures as the cause of abnormal reaction of the patient, or of later complication, without mention of misadventure at the time of the procedure; I48.91 Unspecified atrial fibrillation; T38.0X5A Adverse effect of glucocorticoids and synthetic analogues, initial encounter; Y92.89 Other specified places as the place of occurrence of the external cause; Z87.891 Personal history of nicotine dependence; Z95.1 Presence of aortocoronary bypass graft; Z95.810 Presence of automatic (implantable) cardiac defibrillator; Z99.81 Dependence on supplemental oxygen; Z88.6 Allergy status to analgesic agent; Z88.0 Allergy status to penicillin; Z88.2 Allergy status to sulfonamides; S22.059D Unspecified fracture of T5-T6 vertebra, subsequent encounter for fracture with routine healing
CPT/HCPCS: 36415; 71045; 71101; 72128; 80048; 80053; 80162; 81001; 83605; 83735; 83880; 84443; 84484; 85025; 85610; 86850; 86900; 86901; 87040; 87070; 87205; 93005; 94640; 94761; 96374; 96375; 97110; 97116; 97163; 97530; A6257; C1769; G0378; J1885; J1956; J2250

== ENCOUNTER → 2018-11-02 | Outpatient (CLI) | payer OTHER ==
[~2018-11-02] MED LIST changes: +CYANOCOBALAMIN (B-12) 1000 MCG/1 ML VIAL IM ONE; +CYANOCOBALAMIN (B-12) 1000 MCG/1 ML VIAL ONE; +DOXY-216 PO; +FLUC100T34 PO; +KETOROLAC TROMETH 60MG/2ML VIAL IM ONE; +SACC250C PO
--- NOTE | 2018-11-02 11:15 | NUR ---
PT. TO PAH/CHF CLINIC WITH FAMILY POST HOSPITALIZATION X 7 DAYS WITH NEW DX: OF MULTIPLE VERTEBRAL FX IN THORACIC SPINE. NOTED HX OF OSTEOPOROSIS WITH LONG-TERM STEROID USE DUE TO PULMONARY MORBIDITY. NEW ORDERS RECEIVED AND CARRIED OUT.
[2018-11-02 11:30] VITALS: BP 109/49
--- NOTE | 2018-11-02 11:50 | NUR ---
MEDS: PT. MEDICATED WITH VIT. B12 1000MCG IM LFT GLUT. AND TORADOL 60 MG IM RT GLUT. PER MD ORDER.
--- NOTE | 2018-11-02 11:55 | NUR ---
LABS DRAWN AND SENT PER MD ORDER.
[2018-11-02 12:00] VITALS: BP 109/48
--- NOTE | 2018-11-02 12:00 | NUR ---
Discharge Instructions See e-MAR for any mediations given with this visit. Patient education given on disease process. Patient verbalized understanding. Previous labs reviewed. Patient discharged in stable condition with after care instructions and follow up appointment. PT. TO HAVE APPT. WITH DR. CEDILLO AT THIS TIME. APPT. MOVED UP DUE TO INCREASED PAIN.
[2018-11-02 16:11] LABS: Basophils # (auto) 0.1 uL; Basophils % (auto) 0.4 % (0.0-2.0); Eosinophils # (auto) 0.1 uL; Eosinophils % (auto) 1.1 % (0.0-7.0); Hematocrit 31.6 % (36.0-46.0); Lymphocytes # (auto) 1.4 uL; Lymphocytes % (auto) 11.9 % (10.0-50.0); Mean Corpuscular Hemoglobin 29.2 pg (28.0-32.0); Mean Corpuscular Hgb Conc. 31.6 g/dL (32.0-36.0); Mean Corpuscular Volume 92.5 fL (80.0-100.0); Monocytes # (auto) 1.2 uL; Monocytes % (auto) 10.1 % (0.0-12.0); Neutrophils # (auto) 9.3 uL; Neutrophils % (auto) 76.5 % (37.0-80.0); Nucleated Red Blood Cells % 0.3 %; Platelet Count (auto) 355 10^3/uL (140-450); Red Blood Cells 3.42 10^6/uL (4.0-5.20); Red Cell Distribution Width 15.4 % (11.8-14.3); White Blood Cell 12.1 10^3/uL (4.4-10.8)
[2018-11-02 16:28] LABS: Albumin 2.6 g/dL (3.4-5.0); Calcium 9.4 mg/dL (8.5-10.1); Potassium 4.2 mmol/L (3.5-5.1)
[2018-11-02 16:34] LABS: BUN/Creatinine Ratio 39.2; Bilirubin, Total 0.6 mg/dL (0.2-1.0); Total Protein 6.1 g/dL (6.4-8.2)
== END | disposition home or self-care (01) ==
LOC: CHF HDHVI 11:21
PROVIDERS: ATTEND Internal Medicine Cardiovascular Disease
DX: D51.9 Vitamin B12 deficiency anemia, unspecified (principal); C82.21 Follicular lymphoma grade III, unspecified, lymph nodes of head, face, and neck; E78.5 Hyperlipidemia, unspecified; E03.9 Hypothyroidism, unspecified; I48.91 Unspecified atrial fibrillation; I25.10 Atherosclerotic heart disease of native coronary artery without angina pectoris; M19.90 Unspecified osteoarthritis, unspecified site; I13.0 Hypertensive heart and chronic kidney disease with heart failure and stage 1 through stage 4 chronic kidney disease, or unspecified chronic kidney disease; E11.22 Type 2 diabetes mellitus with diabetic chronic kidney disease; E11.40 Type 2 diabetes mellitus with diabetic neuropathy, unspecified; E11.21 Type 2 diabetes mellitus with diabetic nephropathy; N18.2 Chronic kidney disease, stage 2 (mild); I50.42 Chronic combined systolic (congestive) and diastolic (congestive) heart failure; M81.0 Age-related osteoporosis without current pathological fracture; I27.21 Secondary pulmonary arterial hypertension; J44.9 Chronic obstructive pulmonary disease, unspecified; E44.0 Moderate protein-calorie malnutrition; Z99.81 Dependence on supplemental oxygen; Z87.891 Personal history of nicotine dependence; Z95.1 Presence of aortocoronary bypass graft; Z79.899 Other long term (current) drug therapy; Z95.810 Presence of automatic (implantable) cardiac defibrillator; Z90.49 Acquired absence of other specified parts of digestive tract; Z98.61 Coronary angioplasty status; Z79.01 Long term (current) use of anticoagulants; Z79.4 Long term (current) use of insulin; Z79.82 Long term (current) use of aspirin; Z87.01 Personal history of pneumonia (recurrent)
CPT/HCPCS: 36415; 80053; 80061; 80162; 82306; 83036; 83615; 84443; 85025; 96372; G0463; J1885; J3420

== ENCOUNTER → 2018-11-13 | Outpatient (CLI) | payer OTHER ==
[2018-11-13 10:45] VITALS: BP 136/70
[2018-11-13 12:12] VITALS: BP 136/70
--- NOTE | 2018-11-13 12:12 | NUR ---
IN TO CLINIC FOR COMPLAINTS OF RIGHT LEG BRUISING AND PAIN SINCE ANGIOGRAM " 3 WEEKS AGO" DAUGHTER IN LAW IN ATTENDANCE. PT IN WHEELCHAIR WITH OXYGEN IN USE AT 3 LPM. WEARING BACK BRACE FOR SPINAL FRACTURES. ASSISTED TO RECLINER CHAIR 2 PERSON MINIMUS ASSISTANCE AND VISUALIZED RIGHT LEG. BRUISING NOTED, ON INNER ASPECT OF RIGHT THIGH. LIGHT PURPLE, TISSUES FAIRLY SOFT. ENCOURAGED TO APPLY HEAT FOR COMFORT. MEDICATION ADMINISTRATION TORADOL 60 MG IM TO RIGHT GLUT AT 1158 VIT B12 1000 MCG IM TO LEFT GLUT AT 1109 Discharge Instructions See e-MAR for any mediations given with this visit. Patient education given on disease process. Patient verbalized understanding. Previous labs reviewed. Patient discharged in stable condition with after care instructions and follow up appointment.
== END | disposition home or self-care (01) ==
LOC: CHF HDHVI 11:05
PROVIDERS: ATTEND Internal Medicine Cardiovascular Disease
DX: S22.059D Unspecified fracture of T5-T6 vertebra, subsequent encounter for fracture with routine healing (principal); M81.0 Age-related osteoporosis without current pathological fracture; I27.21 Secondary pulmonary arterial hypertension; J44.9 Chronic obstructive pulmonary disease, unspecified; I13.0 Hypertensive heart and chronic kidney disease with heart failure and stage 1 through stage 4 chronic kidney disease, or unspecified chronic kidney disease; E11.22 Type 2 diabetes mellitus with diabetic chronic kidney disease; N18.2 Chronic kidney disease, stage 2 (mild); I50.42 Chronic combined systolic (congestive) and diastolic (congestive) heart failure; I48.91 Unspecified atrial fibrillation; M19.90 Unspecified osteoarthritis, unspecified site; E78.5 Hyperlipidemia, unspecified; E03.9 Hypothyroidism, unspecified; E44.0 Moderate protein-calorie malnutrition; E78.00 Pure hypercholesterolemia, unspecified; E11.21 Type 2 diabetes mellitus with diabetic nephropathy; E11.40 Type 2 diabetes mellitus with diabetic neuropathy, unspecified; J96.10 Chronic respiratory failure, unspecified whether with hypoxia or hypercapnia; E11.65 Type 2 diabetes mellitus with hyperglycemia; Z95.810 Presence of automatic (implantable) cardiac defibrillator; Z79.01 Long term (current) use of anticoagulants; Z79.899 Other long term (current) drug therapy; Z87.891 Personal history of nicotine dependence; Z87.01 Personal history of pneumonia (recurrent); Z99.81 Dependence on supplemental oxygen; Z79.4 Long term (current) use of insulin; Z95.1 Presence of aortocoronary bypass graft; Z90.49 Acquired absence of other specified parts of digestive tract; X58.XXXD Exposure to other specified factors, subsequent encounter
CPT/HCPCS: 96372; G0463; J1885; J3420

== ENCOUNTER 2018-11-17 12:51 | Inpatient (IN) | payer OTHER | END 2018-12-05 14:27 | disposition E | LOC: TELE-CENTR 11-24 20:51 → ER 12:51 → TELE 18:17 → TELE-CENTR 20:22 | PROC: 3E053GC Introduction of Other Therapeutic Substance into Peripheral Artery, Percutaneous Approach (ICD-10-PCS; principal; ~2018-11-17) | DX: A41.9 Sepsis, unspecified organism (principal); J18.1 Lobar pneumonia, unspecified organism; I50.23 Acute on chronic systolic (congestive) heart failure; J96.22 Acute and chronic respiratory failure with hypercapnia; J44.0 Chronic obstructive pulmonary disease with (acute) lower respiratory infection; J44.1 Chronic obstructive pulmonary disease with (acute) exacerbation; E87.4 Mixed disorder of acid-base balance; I11.0 Hypertensive heart disease with heart failure; I25.10 Atherosclerotic heart disease of native coronary artery without angina pectoris; Z95.1 Presence of aortocoronary bypass graft; R74.8 Abnormal levels of other serum enzymes; E78.00 Pure hypercholesterolemia, unspecified; D64.9 Anemia, unspecified; K76.1 Chronic passive congestion of liver ==